=== PATIENT | female | born 1940 | race Hispanic/Latino ===

== ENCOUNTER 2016-10-02 11:49 | Emergency (ER) | payer MEDICARE ==
[2016-10-02 12:02] VITALS: BMI 28.3
[2016-10-02 12:07] VITALS: BP 136/85; PULSE 60; RESP 18; TEMP 97.5; O2SAT 99
--- NOTE | 2016-10-02 13:47 | RAD ---
PROCEDURE: Radiographs of the right tibia and fibula. HISTORY: leg pain/ fall COMPARISON: None available. TECHNIQUE: Frontal and lateral views obtained. FINDINGS: BONES: No fracture or destructive lesion. JOINT SPACES: Unremarkable. OTHER FINDINGS: None. IMPRESSION: Unremarkable radiographs of the right tibia and fibula.
--- NOTE | 2016-10-02 13:48 | RAD ---
PROCEDURE: Right Ankle Radiographs. HISTORY: ankle pain s/p fall COMPARISON: None FINDINGS: BONES: There is an obliquely oriented fracture through the lateral malleolus JOINTS: Normal. No osteoarthritis. Ankle mortise maintained. Talar dome intact SOFT TISSUES: Lateral soft tissue swelling OTHER FINDINGS: None. IMPRESSION: Displaced oblique fracture of the lateral malleolus
--- NOTE | 2016-10-02 14:53 | ED PDOC ---
Arrival/HPI - General Chief Complaint: Lower Extremity Problem/Injury Time Seen by Provider: 10/02/16 12:31 Historian: Patient - History of Present Illness Narrative History of Present Illness (Text): 10/02/16 16:10 76-year-old female presents today with right ankle pain and swelling status post injury. Patient states around 9:30 this morning she was trying to shoo away animals from her gomez when she twisted the ankle landing on her right side. She denies hitting her head. Denies headache dizziness or weakness. She is complaining of pain and swelling to the right ankle with difficulty ambulating. No medications taken for pain at home. Patient refusing medications here. No chest pain or shortness of breath. No abdominal pain. Time/Duration: Prior to Arrival Symptom Onset: Sudden Symptom Course: Unchanged Quality: Aching, Throbbing Severity Level: 3 Past Medical History - Provider Review Nursing Documentation Reviewed: Yes - Travel History Have you recently traveled outside [place] w/in the past 3 mons?: No - Infectious Disease Hx of Infectious Diseases: None - Tetanus Immunization Tetanus Immunization: Unknown - Cardiac Hx Cardiac Disorders: Yes Hx Hypertension: Yes Hx Pacemaker: No - Pulmonary Hx Respiratory Disorders: No - Neurological Hx Neurological Disorder: No Hx Paralysis: No - HEENT Hx HEENT Disorder: No - Renal Hx Renal Disorder: Yes Hx Kidney Stones: Yes - Endocrine/Metabolic Hx Endocrine Disorders: No - Hematological/Oncological Hx Blood Disorders: No Hx Blood Transfusions: No Hx Blood Transfusion Reaction: No - Integumentary Hx Dermatological Disorder: No - Musculoskeletal/Rheumatological Hx Musculoskeletal Disorders: Yes (LOW BACK PAIN) - Gastrointestinal Hx Gastrointestinal Disorders: Yes Hx Constipation: Yes Hx Diverticulitis: Yes (03-28-12) - Genitourinary/Gynecological Hx Genitourinary Disorders: Yes Hx Reproductive Disorders: Yes (L BREAST MASS PT DENIES ANY SURGERY) - Psychiatric Hx Psychophysiologic Disorder: No Hx Emotional Abuse: No Hx Physical Abuse: No Hx Substance Use: No - Past Surgical History Past Surgical History: No Previous - Surgical History Other/Comment: kindey stones removed - Anesthesia Hx Anesthesia: Yes Hx Anesthesia Reactions: Yes (VOMITING) Hx Malignant Hyperthermia: No - Suicidal Assessment Feels Threatened In Home Enviroment: No Family/Social History - Physician Review Nursing Documentation Reviewed: Yes Family/Social History: Unknown Family HX Smoking Status: Never Smoked Hx Alcohol Use: No Hx Substance Use: No Hx Substance Use Treatment: No Allergies/Home Meds Allergies/Adverse Reactions: Allergies No Known Allergies Allergy (Verified 10/02/16 12:01) Home Medications: Home Meds Medication Instructions Recorded Confirmed Omeprazole 40 mg PO DAILY 06/06/12 10/02/16 Hydrochlorothiazide/Valsarta 1 tab PO QAM 06/07/12 10/02/16 [Diovan Hct 25 mg-160 mg] Loratadine [Claritin] 1 tab PO DAILY 10/02/16 10/02/16 Review of Systems - Review of Systems Constitutional: absent: Fatigue, Fevers Eyes: absent: Vision Changes, Photophobia, Eye Pain Respiratory: absent: SOB, Cough Cardiovascular: absent: Chest Pain, Palpitations Gastrointestinal: absent: Abdominal Pain Musculoskeletal: Arthralgias (Right ankle pain). absent: Back Pain, Neck Pain Skin: absent: Rash, Pruritis Neurological: absent: Headache, Dizziness Psychiatric: absent: Anxiety, Depression Physical Exam Vital Signs Reviewed: Yes Vital Signs Temp Pulse Resp BP Pulse Ox 10/02/16 12:06 97.5 F L 60 18 136/85 99 Temperature: Afebrile Blood Pressure: Normal Pulse: Regular Respiratory Rate: Normal Appearance: Positive for: Well-Appearing, Non-Toxic, Comfortable Pain Distress: None Mental Status: Positive for: Alert and Oriented X 3 - Systems Exam Head: Present: Atraumatic Respiratory/Chest: Present: Clear to Auscultation Cardiovascular: Present: Regular Rate and Rhythm Back: Present: Normal Inspection Upper Extremity: Present: Normal Inspection Lower Extremity: Present: NORMAL PULSES, Tenderness (Right ankle: There is tenderness and swelling noted over the lateral and medial malleolus. Sensation and distal pulses are intact. There is no foot tenderness. There is proximal fibular tenderness. Full range of motion of the knee. Limited range of motion of the ankle.), Swelling, Neurovascularly Intact, Capillary Refill < 2 s. No: CALF TENDERNESS, Normal ROM, Erythema, Deformity Neurological: Present: GCS=15 Skin: Present: Warm, Dry, Normal Color. No: Rashes Psychiatric: Present: Alert, Oriented x 3 Medical Decision Making ED Course and Treatment: 10/02/16 16:13 Patient nontoxic well-appearing in no distress with stable vital signs Patient refused medications for pain X-rays of the right ankle: Spiral displaced fracture of the lateral malleolus X-rays of the right tib-fib: No proximal fibular fracture Case was discussed with the patient's primary care physician Dr. Mayo; she would like dr. davis for ortho. Case discussed and F with Dr. Davis who saw the patient at bedside and placed the patient into a cast. Postreduction films:FINDINGS: BONES: A plaster cast is now in place. There is no significant change in the appearance of the oblique fracture of the lateral malleolus JOINTS: Normal. No osteoarthritis. Ankle mortise maintained. Talar dome intact SOFT TISSUES: Normal. OTHER FINDINGS: None. IMPRESSION: A plaster cast is now in place. There is no significant change in the appearance of the oblique fracture of the lateral malleolus Pt was given rx for walker written by dr. davis; pt is to f/u in the office in 3 weeks. i again spoke with dr. mayo and made her aware of the pain and treatment. I discussed all results in depth with the patient advised to followup with the orthopedist. Advised return if symptoms worsen persist or new symptoms develop Patient verbalizes understanding of discharge instructions and need for immediate followup. Impression: Ankle fracture percocet; 1 tablet every 6 hours as needed for moderate to severe pain; may cause drowsiness use walker for ambulation follow up with the orthopedist within the next 2 days return immediately if symptoms worsen,persist or if new symptoms develop. - RAD Interpretation Radiology Orders: 10/02/16 12:34 ANKLE RIGHT 3 VIEWS ROUTINE [RAD] Stat TIBIA FIBULA RIGHT [RAD] Stat 10/02/16 15:00 ANKLE RIGHT 3 VIEWS ROUTINE [RAD] Stat Disposition/Present on Arrival - Present on Arrival Any Indicators Present on Arrival: No History of DVT/PE: No History of Uncontrolled Diabetes: No Urinary Catheter: No History of Decub. Ulcer: No History Surgical Site Infection Following: None - Disposition Have Diagnosis and Disposition been Completed?: Yes Diagnosis: Ankle fracture Disposition: HOME/ ROUTINE Disposition Time: 13:47 Patient Plan: Discharge Condition: GOOD Discharge Instructions (ExitCare): Ankle Fracture (ED) Additional Instructions: percocet; 1 tablet every 6 hours as needed for moderate to severe pain; may cause drowsiness use walker for ambulation follow up with the orthopedist within the next 2 days return immediately if symptoms worsen,persist or if new symptoms develop. Prescriptions: oxyCODONE/Acetaminophen [Percocet 5/325 mg Tab] 1 tab PO Q6H PRN #8 tab PRN Reason: moderate to severe pain Referrals: Sebastián Davis DO [Staff Provider] - Follow up with primary Elana Viera MD [Family Provider] - Follow up with primary
--- NOTE | 2016-10-02 15:41 | RAD ---
PROCEDURE: Right Ankle Radiographs. HISTORY: post reduction COMPARISON: None FINDINGS: BONES: A plaster cast is now in place. There is no significant change in the appearance of the oblique fracture of the lateral malleolus JOINTS: Normal. No osteoarthritis. Ankle mortise maintained. Talar dome intact SOFT TISSUES: Normal. OTHER FINDINGS: None. IMPRESSION: A plaster cast is now in place. There is no significant change in the appearance of the oblique fracture of the lateral malleolus
--- NOTE | 2016-10-02 17:10 | CON ---
DATE: 10/02/2016 Called to see a 76-year-old female patient with a complaint of right ankle pain. X-ray shows minimal ly displaced fractured lateral malleolus with swelling on the medial malleolus without a visible frac ture source consider bimalleolar equivalent fracture because it looks like the deltoid ligament was p artially torn. The ankle fracture is a lateral malleolar fracture, minimally displaced, with swellin g, more on the lateral side than medial side, pain on the lateral side more than the medial side, so we put her in a short leg cast, so the patient could ambulate with a walker with partial weightbearin g on that right leg and we repeat the x-ray today to make sure it is status quo and in good position and we will see her in 3 weeks in the office. FINAL DIAGNOSIS: Bimalleolar equivalent right ankle. Treatment is closed reduction and application of short leg cast and can follow the patient in the office in 3 weeks. I will see her sooner if ther e is undue pain or swelling. Sebastián Mas DO cc: [id number] TT: 10/02/2016 17:09:57 Confirmation # [id number] Dictation # [id number] tonia
== END 2016-10-02 15:42 | disposition home or self-care (01) ==
LOC: ED 11:49
DX: S82.61XA Displaced fracture of lateral malleolus of right fibula, initial encounter for closed fracture (principal); X50.1XXA Overexertion from prolonged static or awkward postures, initial encounter

== ENCOUNTER 2018-06-25 07:21 | Outpatient (CLI) | payer MEDICARE | END 2018-06-25 07:22 | disposition home or self-care (01) | LOC: RAD 07:21 ==

== ENCOUNTER 2018-07-13 07:44 | Outpatient (CLI) | payer MEDICARE | END 2018-07-13 07:45 | disposition home or self-care (01) | LOC: LAB 07:44 ==

== ENCOUNTER 2018-08-10 07:25 | Outpatient (CLI) | payer MEDICARE | END 2018-08-10 07:26 | disposition home or self-care (01) | LOC: LAB 07:25 ==